=== PATIENT | female | born 1960 | race Caucasian/White ===

== ENCOUNTER 2025-07-28 13:31 | Inpatient (IN) | payer MEDICARE, SELFPAY ==
--- NOTE | ~2025-07-28 | CT_ITS ---
CLINICAL HISTORY: jaundice, epigastric abdominal pain CT abdomen and pelvis with contrast Comparison: CT - CT ABDOMEN PELVIS W IV CON - 07/28/2025 09:20 PM EDT Findings: Hiatal hernia. The gallbladder and solid organs are within normal limits. No renal stones. The gallbladder is contracted at time of imaging. No bowel obstruction, pneumoperitoneum, or pneumatosis. The appendix is within normal limits. The uterus demonstrates few subcentimeter dystrophic calcification; calcified leiomyomas. Left hemiabdomen peritoneal geographic area of inflammatory changes, 10 cm craniocaudal by 8 cm transverse by 5 cm AP, axial image number 43 of 98 series 3, coronal image 26 of 78 series 7. No acute fracture. IMPRESSION: 1. Left hemiabdominal mesenteric panniculitis, area measuring 10 x 8 x 5 cm. 2. Calcified uterine leiomyomas. 3. Hiatal hernia. This document has been electronically signed by: Mark Aguiar MD on 07/28/2025 23:25:34
--- NOTE | ~2025-07-28 | US_ITS ---
CLINICAL HISTORY: cholecystitis rule out US abdomen limited Comparison: None provided Findings: Normal gallbladder. No gallbladder wall thickening. No pericholecystic fluid. Normal caliber common duct. IMPRESSION: Normal gallbladder and bile ducts. This document has been electronically signed by: Miguel Ángel Avalos MD on 07/28/2025 20:36:11
--- NOTE | ~2025-07-28 | MR_ITS ---
EXAMINATION: MRCP HISTORY: abdo pain, raised LFT, r/o debris, stricture of CB COMPARISON: Correlation is made with abdominal CT and ultrasound examinations dated 07/28/2025. TECHNIQUE: Axial gradient echo in and out of phase T1, axial T2 and fat suppressed T2, and coronal haste T2 with fat saturation images were obtained through the abdomen. 3D MRCP Reconstructed images and thick slab imaging of the biliary tree were obtained. FINDINGS: There is no loss of signal intensity within the liver on opposed phase imaging to suggest steatosis. There is no intrahepatic biliary ductal dilatation. The gallbladder is contracted. There is a small amount of pericholecystic fluid. There may be a tiny gallstone. No intraluminal filling defects are identified within the common bile duct to suggest choledocholithiasis. The pancreatic duct is normal in caliber. There is trace free fluid surrounding the descending duodenum in the right anterior pararenal space. This could be secondary to ulcer disease or possibly groove pancreatitis. The spleen, adrenals, and kidneys are unremarkable. No retroperitoneal lymphadenopathy is identified in the upper abdomen. The visualized bones demonstrate normal marrow signal intensity. MR/MR MRCP IMPRESSION: 1. Possible cholelithiasis. 2. No evidence of choledocholithiasis. 3. Trace free fluid surrounding the descending duodenum in the right anterior pararenal space. This could be secondary to ulcer disease or possibly groove pancreatitis. Clinical correlation is recommended. Electronically signed by: Flavio Hernandez MD 07/29/2025 03:41 PM EDT
--- NOTE | 2025-07-28 13:59 | ED.GENADULT ---
[facility] - General Adult General Chief complaint: General Medical Stated complaint: no apetite, body aches Time Seen by Provider: 07/28/25 16:17 Source: patient Mode of arrival: ambulatory Limitations: no limitations History of Present Illness ED Provider: Dr. Blake [facility] narrative: 64-year-old female history of hypothyroidism presented hospital today for evaluation of poor p.o. intake, headache. She is also complaining of epigastric pain. Patient has stated that she was recently started on Macrobid for UTI this Tuesday. However on she began to have symptoms of increased fatigue. She has not been eating much due to this. She is also complaining of some epigastric pain. She has some epigastric discomfort when she eats. No abdominal surgeries in the past Related Data Allergies Allergy/AdvReac Type Severity Reaction Status Date / Time sulfamethoxazole (From Allergy Intermediate Rash Verified 07/28/25 14:03 Bactrim) trimethoprim (From Bactrim) Allergy Intermediate Rash Verified 07/28/25 14:00 Review of Systems Review of Systems: Pertinent review of systems as mentioned in HPI. All other system otherwise negative. [facility] Past Medical History [facility] Narrative: Medical history as mentioned in [facility] Social History Social History Alcohol intake: current Smoked in Last 30 Days: No Use of substances other than those prescribed or required for medical reasons: No Advance Directives: Yes Advance Directives Information Provided: No Advance Directives on File: No Do you have a plan to hurt others: No Plan Physical Exam ED Exam Exam: General: Pleasant, no distress, interacting appropriately Head: Normacephalic, atraumatic ENT: oral mucosa moist, neck supple, no tracheal deviation, scleral icterus appreciated on exam Cardiovascular: regular rate, regular rhythm, no murmurs, rubbing, gallops Respiratory: CTAB, no wheeze, rales, rhonchi Gastrointestinal: Soft, non distended, epigastric tenderness on palpation, no right upper quadrant tenderness Neurological: Awake and alert, no facial droop noted Skin: Warm and dry Psychiatric: Appropriate mood and thoughts Vital Signs: Vital Signs - 24 hr 07/28/25 14:00 07/28/25 16:19 07/28/25 17:34 Temperature 98.0 F 100.8 F H 98.5 F Pulse Rate 118 H 109 H 98 Respiratory Rate 18 20 18 Blood Pressure 129/82 119/71 129/73 Pulse Oximetry 97 99 94 Oxygen Delivery Method Room Air Room Air Room Air 07/28/25 19:36 07/29/25 00:29 Temperature 98.1 F Pulse Rate 81 85 Respiratory Rate 16 16 Blood Pressure 114/62 117/71 Pulse Oximetry 97 97 Oxygen Delivery Method Room Air Room Air BMI result Body Mass Index 27.5 Course Course Course Narrative: This is a rapid medical exam performed by Tessie Ovalle NP: Additional HPI, ROS, PE not included below will be deferred to primary provider. Patient is a 64y/o F presenting to the ED stating that Tue had UTI sxs, went to urgent care , started on Macrobid, by night has had body aches, headache, feeling worse. Epigastric pain after eating. Subjective fevers. UTI sxs have improved. Plan: labs, UA, viral swabs Medications Administered Discontinued Medications Generic Name Dose Route Start Last Admin Trade Name Freq PRN Reason Stop Dose Admin Acetaminophen 975 mg 07/28/25 18:12 07/28/25 18:24 Acetaminophen 325 Mg Tablet PO 07/28/25 18:13 975 mg ONCE ONE Administration Al Hydroxide/Mg Hydroxide 30 ml 07/28/25 21:25 07/28/25 21:47 Magnesium Hydrox/Alum Hydrox 30 Ml Oral.Susp PO 07/28/25 21:26 30 ml ONCE ONE Administration Cephalexin HCl 500 mg 07/29/25 00:04 07/29/25 00:24 Cephalexin 500 Mg Capsule PO 07/29/25 00:05 500 mg ONCE ONE Administration Famotidine 20 mg 07/29/25 00:04 07/29/25 00:24 Famotidine/Pf 20 Mg/2 Ml Vial IVPUSH 07/29/25 00:05 20 mg ONCE ONE Administration Piperacillin Sod/Tazobactam 100 mls @ 200 mls/hr 07/28/25 17:50 07/28/25 18:33 Sod 4.5 gm/ Sodium Chloride IV 07/28/25 18:19 Infused ONCE ONE Infusion Sodium Chloride 1,000 mls @ 999 mls/hr 07/28/25 18:15 07/28/25 19:32 Ns IV 07/28/25 19:15 Infused .Q1H1M YAAKOV Infusion Iohexol 85 ml 07/28/25 21:36 07/28/25 21:38 Iohexol 350 Mg/Ml 100 Ml Infus..Btl IV 07/28/25 21:37 85 ml ONCE ONE Administration Lidocaine HCl 15 ml 07/28/25 21:25 07/28/25 21:46 Lidocaine Hcl Viscous 2 % 15 Ml Solution MUCOUS MEM 07/28/25 21:26 15 ml ONCE ONE Administration Medical Decision Making Medical Decision Making [facility] Narrative: 64-year-old female presented hospital today for evaluation of fatigue, declined any p.o. intake and epigastric pain. I review patient's lab work. No sign of leukocytosis, patient does have elevated left shift and neutrophils 93.6%. Patient's have slight hyponatremia 133. Lactic acid is not elevated. Patient's bilirubin is elevated at 4.9. AST of 51 ALT of 122 alk-phos is elevated at 173. Patient's UA did show signs of pyuria. No bacteria. I suspect this is likely secondary to potential cholecystitis. Based on patient's lab presentation I suspect patient likely cholecystitis. A comprehensive ultrasound will be ordered. IV Zosyn initiated for the patient's bolus IV fluid be initiated for the patient as well. P.o. Tylenol will be given for headache. Comprehensive ultrasound did not show any signs of cholecystitis. I did obtain a CT imaging of her abdomen and pelvis. 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 Gives also calcified uterine fibroids and hiatal hernia. Patient is still complaining of some discomfort in the epigastric area. Did give patient some GI cocktail which did alleviate this pain. However her pain returned. IV Pepcid will be given the patient. Patient was able to p.o. challenge without any issues. However given the patient's elevated bilirubin level. I did consult the GI team. They recommend obtain a indirect and direct bilirubin levels. To further assess the cause of her elevated bilirubin. If the patient has elevated direct bilirubin they recommended an MRCP. If the indirect is elevated. They recommended LDH to assess for any signs of hemolysis. They recommend further trending of the patient's liver enzyme. The patient will be admitted to the hospital for further monitoring. Differential Diagnosis Differential Diagnoses: The differential diagnosis associated with the presentation includes Sepsis, cholecystitis, cholangitis, choledocholithiasis Consult Healthcare Provider Management of the patient was discussed with: Configuration Technician (Dr. Alba (GI)) Lab Data [facility] Lab Attestation statement: I reviewed the patient's lab results. 07/28/25 15:23 07/28/25 15:23 Labs: Lab Results 07/28/25 07/28/25 07/28/25 Range/Units 15:20 15:23 17:27 WBC 6.9 (4.8-10.8) X10*3/uL RBC 4.35 (4.20-5.50) X10*6/uL Hgb 13.2 (12.0-16.0) g/dl Hct 37.1 (37.0-47.0) % MCV 85.3 (80.0-98.0) fL MCH 30.3 (27.0-33.0) pg MCHC 35.6 H (31.0-35.0) g/dl RDW 12.0 (11.0-16.0) % Plt Count 213 (160-400) X10*3/uL MPV 8.8 L (9.4-12.3) fL Immature Gran % (Auto) 0.3 (0.0-0.4) % Neut % (Auto) 93.6 H (45-73) % Lymph % (Auto) 1.5 L (20-40) % [place] % (Auto) 3.5 (2-11) % Eos % (Auto) 1.0 (0-4) % Baso % (Auto) 0.1 (0-2) % Lymph # (Auto) 0.1 L (1.2-4.9) X10*3/uL [place] # (Auto) 0.2 (0.1-1.2) X10*3/uL Eos # (Auto) 0.1 (0.0-0.4) X10*3/uL Baso # (Auto) 0.0 (0.0-0.2) X10*3/uL Abs Immat Gran (auto) 0.02 (0.00-0.03) X10*3/uL Absolute Neuts (auto) 6.4 (2.0-8.3) x10*3/uL Absolute Nucleated RBC 0.000 (0.0-0.012) X10*3/uL Nucleated RBC % (auto) 0.0 (0.0-0.2) /100WBC Smear Tech's Comments VERIFIED Sodium 133 L (135-145) mmol/L Potassium 3.4 (3.3-5.1) mmol/L Chloride 102 (96-108) mmol/L Carbon Dioxide 22 (22-29) mmol/L Anion Gap 12 (12-20) BUN 10 (9-16) mg/dL Creatinine 0.65 (0.5-1.4) mg/dL Estim Creat Clear Calc 80.2 Estimated GFR > 60 Random Glucose 122 H (60-115) mg/dL Lactic Acid 1.2 (0.5-2.0) mmol/L Calcium 9.2 (8.4-10.2) mg/dL Total Bilirubin 4.9 H (0.0-1.0) mg/dL AST 51 H (5-31) U/L ALT 122 H (0-31) U/L Alkaline Phosphatase 173 H (39-117) U/L Total Protein 6.9 (6.5-8.0) g/dL Albumin 3.9 (3.5-5.0) g/dL Lipase 30 (8-78) U/L Urine Color Urine Appearance Urine pH (5.0-9.0) Ur Specific [place] (1.005-1.025) Urine Protein (Neg-Trace) mg/dL Urine Glucose (UA) (Negative) mg/dL Urine Ketones (Negative) mg/dL Urine Blood (Negative) Urine Nitrite (Negative) Ur Leukocyte Esterase (Negative) Urine RBC (0-2) /HPF Urine WBC (0-5) /HPF Ur Squamous Epith Cells (0-2) /HPF Urine Bacteria (None Seen) Hyaline Casts (0-2) /LPF COVID-19 (RIVAS) Negative (Negative) COVID-19 Clin Com See Note Influenza Type A (JP) Negative (Negative) Influenza Type B (JP) Negative (Negative) Influenza A & B Note See Note S. pyogenes GrpA JP Negative (Negative) 07/28/25 Range/Units 17:50 WBC (4.8-10.8) X10*3/uL RBC (4.20-5.50) X10*6/uL Hgb (12.0-16.0) g/dl Hct (37.0-47.0) % MCV (80.0-98.0) fL MCH (27.0-33.0) pg MCHC (31.0-35.0) g/dl RDW (11.0-16.0) % Plt Count (160-400) X10*3/uL MPV (9.4-12.3) fL Immature Gran % (Auto) (0.0-0.4) % Neut % (Auto) (45-73) % Lymph % (Auto) (20-40) % [place] % (Auto) (2-11) % Eos % (Auto) (0-4) % Baso % (Auto) (0-2) % Lymph # (Auto) (1.2-4.9) X10*3/uL [place] # (Auto) (0.1-1.2) X10*3/uL Eos # (Auto) (0.0-0.4) X10*3/uL Baso # (Auto) (0.0-0.2) X10*3/uL Abs Immat Gran (auto) (0.00-0.03) X10*3/uL Absolute Neuts (auto) (2.0-8.3) x10*3/uL Absolute Nucleated RBC (0.0-0.012) X10*3/uL Nucleated RBC % (auto) (0.0-0.2) /100WBC Smear Tech's Comments Sodium (135-145) mmol/L Potassium (3.3-5.1) mmol/L Chloride (96-108) mmol/L Carbon Dioxide (22-29) mmol/L Anion Gap (12-20) BUN (9-16) mg/dL Creatinine (0.5-1.4) mg/dL Estim Creat Clear Calc Estimated GFR Random Glucose (60-115) mg/dL Lactic Acid (0.5-2.0) mmol/L Calcium (8.4-10.2) mg/dL Total Bilirubin (0.0-1.0) mg/dL AST (5-31) U/L ALT (0-31) U/L Alkaline Phosphatase (39-117) U/L Total Protein (6.5-8.0) g/dL Albumin (3.5-5.0) g/dL Lipase (8-78) U/L Urine Color Dark Yellow Urine Appearance Clear Urine pH 6.0 (5.0-9.0) Ur Specific [place] 1.015 (1.005-1.025) Urine Protein 30 (1+) H (Neg-Trace) mg/dL Urine Glucose (UA) Negative (Negative) mg/dL Urine Ketones 80 (Negative) mg/dL Urine Blood Negative (Negative) Urine Nitrite Negative (Negative) Ur Leukocyte Esterase Moderate (2+) H (Negative) Urine RBC 3-5 H (0-2) /HPF Urine WBC 21-50 H (0-5) /HPF Ur Squamous Epith Cells 6-10 (0-2) /HPF Urine Bacteria None Seen (None Seen) Hyaline Casts 0-2 (0-2) /LPF COVID-19 (RIVAS) (Negative) COVID-19 Clin Com Influenza Type A (JP) (Negative) Influenza Type B (JP) (Negative) Influenza A & B Note S. pyogenes GrpA JP (Negative) Independent Interpretation I performed an independent interpretation of an: Ultrasound and CT Scan Radiology Impression Discussion of test interpretation with radiology: I have reviewed the radiologist's reading. Critical Care Time Critical Care Time Critical Care Time: Yes Total Critical Care Time: 38 Attestation: Time is exclusive of separately billable procedures. Time includes: direct patient care, patient reassessment, coordination of patient care, interpretation of data (laboratory data, pulse oximetry, arterial blood gases and chest xrays), review of patient's medical records, medical consultation and documentation of patient care. Procedures excluded from critical care time: central intravenous line placement and electrocardiography. Discharge Plan Discharge Clinical Impression: Elevated bilirubin, Acute epigastric pain, Mesenteric panniculitis Patient Disposition: Admitted As Inpatient
[2025-07-28 14:00] VITALS: BP 129/82; PULSE 118; RESP 18; TEMP 36.7; O2SAT 97; BMI 27.5
[2025-07-28 15:30] LABS: Hematocrit 37.1 % (37.0-47.0); Hemoglobin 13.2 g/dl (12.0-16.0); Imm Gran Abs Auto 0.02 X10*3/uL (0.00-0.03); Imm Gran Pct Auto 0.3 % (0.0-0.4); Lymphocytes Absolute Auto 0.1 X10*3/uL (1.2-4.9); MANUAL DIFF FLAG SCAN; Mean Corpuscular HGB Conc 35.6 g/dl (31.0-35.0); Mean Corpuscular Hemoglobin 30.3 pg (27.0-33.0); Mean Corpuscular Volume 85.3 fL (80.0-98.0); NRBC Abs Auto 0.000 X10*3/uL (0.0-0.012); NRBC Pct Auto 0.0 /100WBC (0.0-0.2); Platelet Count 213 X10*3/uL (160-400); Red Blood Count 4.35 X10*6/uL (4.20-5.50); SCAN SMEAR FLAG 1; White Blood Count 6.9 X10*3/uL (4.8-10.8)
--- OUTSIDE RECORDS SUMMARY | 2025-07-28 15:31 | XMS_ITS | Patient Health Record ---
[facility] Address [address] [place] [address] Care Team Providers Care Switchboard Operator Name Role Phone Lima Hernandez MD Primary Care Provider Unavailabl e Allergies Allergen (clinical drug ingredient) Drug/Non Drug Allergy documented on EMR Reaction Allergy Type Onset Date Status sulfamethoxazole / trimethoprim Bactrim Unknown Drug Allergy Active Reason For Referral No Information Medications Medication SIG (Take, Route, Frequency, Duration) Notes Start Date End Date Status ZyrTEC 10 MG PRN Active PROzac 20 MG Orally Active Vitamin B12 Active Social History Tobacco Use: Social History Observation Description Date Details (start date - stop date) Former Smoker NA - NA Tobacco Use/Smoking Question Answer Notes Are you a: former smoker Additional Findings: Tobacco Non-User Current no n-smoker Alcohol Screen Question Answer Notes Did you have a drink containing alcohol in the p ast year? Yes Points 0 Interpretation Negative Tobacco use other than smoking: Question Answer Notes Are you an other tobacco user? No Problems Problem Type SNOMED Code ICD Code Onset Dates Problem Status W/U Status Risk Notes Problem Acquired hallux valgus (52808205) Hallux valgus (acquired), left foot (M20.12) Active confirmed Plan Of Treatment No Information Insurance Providers Payer Name Payer Address Payer Phone Subscriber Number Group Number Insured Name Patient Relationship to Insured Coverage Start Date Coverage End Date [facility] [address] [facility] [address] [phone] [id number] Daylin Torres Self - patient is the insured Medical (General) History Medical History History ICD Code Arthritis asthma Measles Chicken pox Surgical History Surgery Date(Month/Year) Carpal tunnel Right left carple tunnel
[2025-07-28 15:58] LABS: COVID-19 Test Negative (Negative); IDNOW Serial# 08D9AD1C; IDNOW Serial# 58CA691E; Strep A Nucleic Acid Negative (Negative)
[2025-07-28 16:05] LABS: Alanine Aminotransferase 122 U/L (0-31); Albumin Level 3.9 g/dL (3.5-5.0); Anion Gap 12 (12-20); Aspartate Amino Transferase 51 U/L (5-31); Blood Urea Nitrogen 10 mg/dL (9-16); Calcium 9.2 mg/dL (8.4-10.2); Carbon Dioxide 22 mmol/L (22-29); Chloride 102 mmol/L (96-108); Creatinine Clr Calc Pharmacy 80.2; Estimated Glomerular Filt Rate > 60; Potassium 3.4 mmol/L (3.3-5.1); Sodium 133 mmol/L (135-145); Total Protein 6.9 g/dL (6.5-8.0)
[2025-07-28 16:09] LABS: IDNOW Serial# 55D5AD1C; Influenza B2 Negative (Negative)
[2025-07-28 16:19] VITALS: BP 119/71; PULSE 109; RESP 20; TEMP 38.2; O2SAT 99
[2025-07-28 16:35] LABS: Alkaline Phosphatase 173 U/L (39-117)
[2025-07-28 17:34] VITALS: BP 129/73; PULSE 98; RESP 18; TEMP 36.9; O2SAT 94
--- NOTE | 2025-07-28 18:02 | PC.NURSE ---
This RN was made aware of patient at 1705 of potential sepsis alert. Pt not febrile at initial triage, re-assessment reveled low grade temp, HR 109, no WBC, neg lactic. pt brought back shortly after, work-up started.
[2025-07-28 18:08] LABS: Appearance Urine Clear; Glucose Urine UA Negative (Negative); PH 6.0 (5.0-9.0); Specific Gravity - Urine 1.015 (1.005-1.025); UMIC TRIGGER UACC YES
[2025-07-28 18:20] LABS: UACC Culture Trigger YES
[2025-07-28 19:36] VITALS: BP 114/62; PULSE 81; RESP 16; TEMP 36.7; O2SAT 97
[2025-07-28] MEDS: iohexoL 350 MG/ML 100 ML INFUS..BTL 85 ML IV (21:38)
[2025-07-28] MEDS: Lidocaine HCl Viscous 2 % 15 ML SOLUTION MUCOUS MEM (21:46)
[2025-07-28] MEDS: Magnesium Hydrox/Alum Hydrox 30 ML ORAL.SUSP PO (21:47)
--- NOTE | 2025-07-28 21:52 | PC.NURSE ---
pt medicatedd per MAR with GI cocktail for c/o 02/[address] abdomen pelvis pending at this time- call worthy within reach
[2025-07-29] VITALS (7 sets, daily range): BP systolic 107–139; BP diastolic 63–71; PULSE 66–85; RESP 12–18; TEMP 36.2–36.7; O2SAT 95–97
--- NOTE | 2025-07-29 00:40 | PC.NURSE ---
Pt medicated as per DEC. PO challenge with sugar free mari doreen and saltines with good effect. Pt able to tolerate with no vomiting. made aware.
[2025-07-29 01:36] LABS: Lipase 30 U/L (8-78)
--- NOTE | 2025-07-29 01:44 | ECG_ITS ---
Test Reason : ABD PAIN Blood Pressure : */* mmHG Vent. Rate : 85 BPM Atrial Rate : 85 BPM P-R Int : 142 ms QRS Dur : 94 ms QT Int : 374 ms P-R-T Axes : 62 62 51 degrees QTcB Int : 445 ms Normal sinus rhythm Nonspecific ST abnormality Abnormal ECG No previous ECGs available Referred By: Mami Blake Electronically Signed By: ALISON PRASAD MD
--- NOTE | 2025-07-29 02:32 | P.HPHOSP_ITS ---
History of Present Illness Date of Service: 07/29/25 Attending physician on admission: Jason Jha Chief Complaint: Muscle aches, headache Daylin Torres is a very pleasant 64-year-old woman with past medical history significant for hypothyroidism presents to the emergency department complaining of multiple symptoms including, generalized body aches, back pain, joint pain and epigastric pain. She also has been experiencing headache and fever. On Tuesday she started to experienced UTI symptoms: Burning urination. Next day, she was seen at the urgent care and was prescribed with a course of Macrobid which she has been taking. Her appetite has been very poor. Yesterday she noted yellowing of her sclerae. She denied recent use of Tylenol. She has been taking Motrin for headache or body aches. Interestingly, last night she failed better but this morning symptoms started again. She had mild diarrhea but denied nausea or vomiting. She denied alcohol abuse, illicit drug use or tobacco smoking. Sometime ago she was evaluated by immunology and testing came back unremarkable. In the ED, she was found to have stable vital signs. Temperature max 100.8. There is mild hyponatremia 133 but no other electrolyte imbalances. Bilirubin is 4.9, direct bilirubin 3.5, AST 51, ALT 122 and alk-phos 133. Albumin, lipase and total proteins are normal. There is no lactic acidosis. Renal function is normal. UA is remarkable for protein 1+, leukocyte esterase 2+, RBC 2 through 5 I, WBC 21-50, bacteria none. Abdomen and pelvis CT scan with IV contrast showed left castillo abdominal mesenteric panniculitis, area measuring 10 x 8 x 5 cm, calcified uterine leiomyomas and hiatal hernia. ECG showed normal sinus rhythm with no acute ischemic changes. ED tx: Zosyn 4.5 g IV, NS 1 L bolus, Tylenol 975 mg p.o., Maalox 30 mL p.o., Pepcid 20 mg IV, Keflex 500 mg p.o. Review of Systems 2 Review of Systems: All 12 systems were reviewed and normal except as noted in HPI. [facility] Social History Alcohol intake: current Patient Tobacco Use Status: Never used Tobacco Meds Allergies Allergy/AdvReac Type Severity Reaction Status Date / Time sulfamethoxazole (From Allergy Intermediate Rash Verified 07/28/25 14:03 Bactrim) trimethoprim (From Bactrim) Allergy Intermediate Rash Verified 07/28/25 14:00 Active Medications: Current Medications Calcium Carbonate (Calcium Carbonate 750 Mg Tab.Chew) 750 mg PO Q4H PRN PRN Reason: Heartburn Enoxaparin Sodium (Enoxaparin Sodium 40 Mg/0.4 Ml Syringe) 40 mg SUBCUT Q24H [facility] Lactated Ringer's (Lr) 1,000 mls @ 125 mls/hr IVCONT .Q8H [facility] Piperacillin Sod/Tazobactam (Sod 3.375 gm/ Sodium Chloride) 50 mls @ 100 mls/hr IV Q6H [facility] Ibuprofen (Ibuprofen 600 Mg Tablet) 600 mg PO Q6H PRN PRN Reason: fever, body aches, headache Magnesium Hydroxide (Milk Of Magnesia 30 Ml Oral.Susp) 30 ml PO DAILY PRN PRN Reason: Constipation Melatonin (Melatonin 3 Mg Tablet) 6 mg PO BEDTIME PRN PRN Reason: Insomnia Sodium Chloride (0.9 % Sodium Chloride Flush 3 Ml Syringe) 3 ml IVFLUSH QSHIFT [facility] Physical Exam 2 Vital Signs and Narrative: Vital Signs: Last Vital Signs Temp 98.1 F 07/28/25 19:36 Pulse 85 07/29/25 00:29 Resp 16 07/29/25 00:29 BP 117/71 07/29/25 00:29 Pulse Ox 97 07/29/25 00:29 O2 Del Method Room Air 07/29/25 00:29 BMI result Body Mass Index 27.5 General: Alert, oriented, in no acute distress. Well nourished and cooperative. Pleasant. Febrile. HEENT: Head normocephalic, atraumatic. PER, EOMI. Icteric sclerae, conjunctiva clear. Oropharynx without erythema or exudate. Mucous membranes moist. Neck: Supple, no lymphadenopathy, or JVD. Heart: RRR. (+) murmur. Lungs: Clear to auscultation bilaterally. No wheezes, rales, or rhonchi. Normal respiratory effort. Abdomen: Soft, upper left periumbilical pain without rebound or guarding., nondistended, normoactive bowel sounds. No hepatosplenomegaly, masses or masses. Extremities: No calf tenderness bilaterally, no swelling Musculoskeletal: Full range of motion. No joint swelling, deformity, or tenderness. Normal muscle tone and strength. Skin: Warm/Dry. No pallor. Jaundice (+) Neurologic: Alert & oriented x4. Moving all extremities spontaneously. Normal speech. Psychological: Normal mood and affect. Thought process coherent. Results Labs 07/28/25 15:23 07/28/25 15:23 Labs: Laboratory Results - last 24 hr 07/28/25 07/28/25 07/28/25 15:20 15:23 17:27 MCV 85.3 MCH 30.3 MCHC 35.6 H RDW 12.0 Plt Count 213 MPV 8.8 L Immature Gran % (Auto) 0.3 Neut % (Auto) 93.6 H Lymph % (Auto) 1.5 L [place] % (Auto) 3.5 Eos % (Auto) 1.0 Baso % (Auto) 0.1 Lymph # (Auto) 0.1 L [place] # (Auto) 0.2 Eos # (Auto) 0.1 Baso # (Auto) 0.0 Abs Immat Gran (auto) 0.02 Absolute Neuts (auto) 6.4 Absolute Nucleated RBC 0.000 Nucleated RBC % (auto) 0.0 Smear Tech's Comments VERIFIED Anion Gap 12 Estim Creat Clear Calc 80.2 Estimated GFR > 60 Random Glucose 122 H Lactic Acid 1.2 Calcium 9.2 Total Bilirubin 4.9 H Direct Bilirubin 3.5 H AST 51 H ALT 122 H Alkaline Phosphatase 173 H Total Protein 6.9 Albumin 3.9 Lipase 30 Urine Color Urine Appearance Urine pH Ur Specific [place] Urine Protein Urine Glucose (UA) Urine Ketones Urine Blood Urine Nitrite Ur Leukocyte Esterase Urine RBC Urine WBC Ur Squamous Epith Cells Urine Bacteria Hyaline Casts COVID-19 ([facility]) Negative COVID-19 Clin Com See Note Influenza Type A (JP) Negative Influenza Type B (JP) Negative Influenza A & B Note See Note S. pyogenes GrpA JP Negative 07/28/25 17:50 MCV MCH MCHC RDW Plt Count MPV Immature Gran % (Auto) Neut % (Auto) Lymph % (Auto) [place] % (Auto) Eos % (Auto) Baso % (Auto) Lymph # (Auto) [place] # (Auto) Eos # (Auto) Baso # (Auto) Abs Immat Gran (auto) Absolute Neuts (auto) Absolute Nucleated RBC Nucleated RBC % (auto) Smear Tech's Comments Anion Gap Estim Creat Clear Calc Estimated GFR Random Glucose Lactic Acid Calcium Total Bilirubin Direct Bilirubin AST ALT Alkaline Phosphatase Total Protein Albumin Lipase Urine Color Dark Yellow Urine Appearance Clear Urine pH 6.0 Ur Specific [place] 1.015 Urine Protein 30 (1+) H Urine Glucose (UA) Negative Urine Ketones 80 Urine Blood Negative Urine Nitrite Negative Ur Leukocyte Esterase Moderate (2+) H Urine RBC 3-5 H Urine WBC 21-50 H Ur Squamous Epith Cells 6-10 Urine Bacteria None Seen Hyaline Casts 0-2 COVID-19 ([facility]) COVID-19 Clin Com Influenza Type A (JP) Influenza Type B (JP) Influenza A & B Note S. pyogenes GrpA JP Assessment and Plan (1) Elevated LFTs: Status: Acute (2) Mesenteric panniculitis: Status: Acute Plan Daylin Torres is a 64-year-old woman who presents with: Elevated LFTs, cause unclear ?secondary to recent use of Macrobid causing cholestasis. Hold Macrobid. Abd US (-) for gallstones. Avoid hepatotoxic agents such as Tylenol. Continue to monitor LFTs. Check CRP, JOSE, anti DNA ds, and hepatitis panel. GI consult. Mesenteric panniculitis. No hx of abdominal surgery. Check CRP, ANCA, IgG4, uric acid, LDH, A1 antitrypsin and JOSE. Continue antibiotic therapy with Zosyn. Sterile pyuria, possible secondary to recent use of antibiotic/Macrobid. Check urine eosinophils. Urine and blood culture obtained we will follow results. Hypothyroidism. Continue levothyroxine. Depression. Hold Prozac due to elevated LFTs. Code status: Full DVT prophylaxis: Lovenox Patient will need hospitalization for at least 2 midnights for elevated LFTs and panic colitis management and treatment with IV antibiotics, IV antibiotics and further investigation and evaluation by subspecialty. Quality Stroke Does the patient have a stroke diagnosis?: No VTE Prior VTE?: No VTE Risk Level:: Medical - moderate - high VTE Device Contraindication: N/A - Device Ordered VTE Drug Contraindication: N/A - Med Ordered
[2025-07-29] MEDS: Lactated Ringers 1,000 ML 125 ML IVCONT ×3 (02:59→23:30)
[2025-07-29 04:23] LABS: MANUAL DIFF FLAG NO
[2025-07-29 04:24] LABS: Hematocrit 31.8 % (37.0-47.0); Hemoglobin 11.5 g/dl (12.0-16.0); Imm Gran Abs Auto 0.02 X10*3/uL (0.00-0.03); Imm Gran Pct Auto 0.4 % (0.0-0.4); Lymphocytes Absolute Auto 0.2 X10*3/uL (1.2-4.9); Mean Corpuscular HGB Conc 36.2 g/dl (31.0-35.0); Mean Corpuscular Hemoglobin 30.8 pg (27.0-33.0); Mean Corpuscular Volume 85.3 fL (80.0-98.0); NRBC Abs Auto 0.000 X10*3/uL (0.0-0.012); NRBC Pct Auto 0.0 /100WBC (0.0-0.2); Platelet Count 193 X10*3/uL (160-400); Red Blood Count 3.73 X10*6/uL (4.20-5.50); White Blood Count 5.0 X10*3/uL (4.8-10.8)
[2025-07-29 04:45] LABS: Uric Acid 1.8 mg/dL (2.4-5.7)
[2025-07-29 05:03] LABS: Alanine Aminotransferase 89 U/L (0-31); Albumin Level 3.3 g/dL (3.5-5.0); Alkaline Phosphatase 148 U/L (39-117); Anion Gap 14 (12-20); Aspartate Amino Transferase 36 U/L (5-31); Blood Urea Nitrogen 8 mg/dL (9-16); Calcium 8.3 mg/dL (8.4-10.2); Carbon Dioxide 20 mmol/L (22-29); Chloride 104 mmol/L (96-108); Creatinine Clr Calc Pharmacy 94.7; Estimated Glomerular Filt Rate > 60; Potassium 2.8 mmol/L (3.3-5.1); Sodium 135 mmol/L (135-145); Total Protein 5.8 g/dL (6.5-8.0)
[2025-07-29] MEDS: Potassium Chloride Packet 20 MEQ PACKET 40 MEQ PO (06:21)
--- NOTE | 2025-07-29 06:46 | HO.NURTONUR ---
64 Y F aox4 presents with headache and abd discomfort s/o antibiotics for UTI. NSR on monitor with HR 80's. Breaths even and unlabored. VSS. Being admitted for elevated LFT's and mesenteric panniculitis. Pending GI evaluation. #22 L hand with LR running at 125 mls/hr. Independent and ambulatory. Hypokalemic. Potassium replenished PO.
[2025-07-29 08:06] LABS: HBS Num1 72.95 mIU/mL (0-7.99); HBc Num1 0.10 S/CO (0.00-0.79); HBsAGNum1 0.27 S/CO (0.00-0.99); Hepatitis A Antibody IgM 0.16 Index (0-0.79); Hepatitis B Surface Antigen Negative (Negative); ~HepC Num1 0.12 S/CO (0.00-0.79); ~Hepatitis A Antibody IgM Nonreactive (Nonreactive); ~Hepatitis B Surface Antibody REACTIVE (Nonreactive); ~Hepatitis C Antibody Nonreactive (Nonreactive)
--- NOTE | 2025-07-29 08:18 | PHA.MEDREC ---
Pharmacy Consult ? Medication Reconciliation Pharmacy has completed the medication reconciliation. Spoke with pt to confirm meds.
[2025-07-29] MEDS: 0.9 % Sodium Chloride Flush 3 ML SYRINGE IVFLUSH ×2 (08:28→19:35)
[2025-07-29 09:14] LABS: EOS Counted 0 CELLS; EOS QC POS YES; EOS Stain Quality OK YES; WBC, Counted 30 CELLS
--- NOTE | 2025-07-29 09:19 | PM.GICN ---
History of Present Illness Data of Consult Service Date: 07/29/25 Primary Care Provider: Lima Hernandez MD HPI Reason for consult: abn LFT 64-year-old woman with hx of hypothyroidism who I am seeing for assessment of abn LFT. She initially presented with flu like symptoms, including malaise, generalized body aches, back pain, joint pains and epigastric discomfort without any exacerbating/relieving factors along with headache and fever. she also noted jaundice. Of note she had been dx with UTI last week and was given macrobid which she has had before. The sx seemed to come on within 24 hrs of the first dose. Her urine sx have improved as she finsihed the 5 d course. She denied alcohol abuse, illicit drug use or tobacco smoking.She denied recent use of Tylenol. She had mild diarrhea but denied nausea or vomiting. Ct imaging: left castillo abdominal mesenteric panniculitis, area measuring 10 x 8 x 5 cm, calcified uterine leiomyomas and hiatal hernia LAB: Bilirubin is 4.9, direct bilirubin 3.5, AST 51, ALT 122 and alk-phos 133. Albumin, lipase and total proteins are normal. There is no lactic acidosis. Renal function is normal. UA is remarkable for protein 1+, leukocyte esterase 2+, RBC 2 through 5 I, WBC 21-50, bacteria none Hep c is negative =- Hep A IgM is neg She has been treatment with Zosyn 4.5 g IV, NS 1 L bolus, Tylenol 975 mg p.o., Maalox 30 mL p.o., Pepcid 20 mg IV, Keflex 500 mg p.o. Review of Systems Review of Systems: Constitutional : No Weight loss, + Fever, No Chills ENT/Mouth : No sore throat, No Rhinorrhea Eyes: No Swelling, No Redness Cardiovascular : No Chest Pain, No SOB, No Edema Respiratory : No Cough, No Sputum, No Wheezing Gastrointestinal : see HPI Genitourinary : NO Dysuria, No Urinary Frequency, No Hematuria, No Urgency Musculoskeletal : + joint pain, + Myalgias, No Joint Swelling Skin : No Skin Lesions, No rash Neuro : No Weakness, No Numbness, No Dizziness, No Headache Psych : No Anxiety/Panic, No Depression Heme/Lymph: No Bruising, No Lymphadenopathy Endocrine : No Polyuria, No Polydipsia All other systems reviewed and are negative. [facility] Family History Pertinent family history: no Fh of liver disease Social History Social History Alcohol intake: current Patient Tobacco Use Status: Never used Tobacco Smoked in Last 30 Days: No Use of substances other than those prescribed or required for medical reasons: No Advance Directives: Yes Advance Directives Information Provided: No Advance Directives on File: No Do you have a plan to hurt others: No Plan Nutrition Risks: No Nutritional Risk Meds Allergies Allergy/AdvReac Type Severity Reaction Status Date / Time sulfamethoxazole (From Allergy Intermediate Rash Verified 07/28/25 14:03 Bactrim) trimethoprim (From Bactrim) Allergy Intermediate Rash Verified 07/28/25 14:00 Active Medications: Current Medications Calcium Carbonate (Calcium Carbonate 750 Mg Tab.Chew) 750 mg PO Q4H PRN PRN Reason: Heartburn Enoxaparin Sodium (Enoxaparin Sodium 40 Mg/0.4 Ml Syringe) 40 mg SUBCUT Q24H [facility] Last Admin: 07/29/25 08:29 Dose: 40 mg Lactated Ringer's (Lr) 1,000 mls @ 125 mls/hr IVCONT .Q8H [facility] Last Admin: 07/29/25 02:59 Dose: 125 mls/hr Piperacillin Sod/Tazobactam (Sod 3.375 gm/ Sodium Chloride) 50 mls @ 100 mls/hr IV Q6H [facility] Last Admin: 07/29/25 08:27 Dose: 100 mls/hr Ibuprofen (Ibuprofen 600 Mg Tablet) 600 mg PO Q6H PRN PRN Reason: fever, body aches, headache Last Admin: 07/29/25 06:22 Dose: 600 mg Magnesium Hydroxide (Milk Of Magnesia 30 Ml Oral.Susp) 30 ml PO DAILY PRN PRN Reason: Constipation Melatonin (Melatonin 3 Mg Tablet) 6 mg PO BEDTIME PRN PRN Reason: Insomnia Sodium Chloride (0.9 % Sodium Chloride Flush 3 Ml Syringe) 3 ml IVFLUSH QSHIFT [facility] Last Admin: 07/29/25 08:28 Dose: 3 ml Home Medications ?Medication ?Instructions ?Recorded ?Confirmed ?Last Taken ?Type cetirizine 10 mg tablet (Zyrtec) 10 mg PO BEDTIME 07/29/25 07/29/25 Unknown History cyanocobalamin (vitamin B-12) 500 500 mcg PO DAILY 07/29/25 07/29/25 Unknown History mcg tablet (Vitamin B-12) fluoxetine 20 mg capsule 20 mg PO DAILY 07/29/25 07/29/25 07/27/25 History ibuprofen 200 mg tablet 600 mg PO Q8H PRN Pain 07/29/25 07/29/25 Unknown History levothyroxine 25 mcg tablet 25 mcg PO DAILY@0600 07/29/25 07/29/25 07/27/25 History Physical Exam Exam: Exam: EXAM: GENERAL: The patient is well developed and nontoxic. VITAL SIGNS:see workflow HEENT: icteric sclerae, PERRLA, EOMI. Oropharynx clear. Moist mucous membranes. Conjunctivae appear well perfused. No thyroid mass. CHEST: Chest wall is nontender. HEART: Regular rate and rhythm without murmurs. LUNGS: Clear to auscultation bilaterally. ABDOMEN: Soft, positive bowel sounds, nontender, no organomegaly.no flank tenderness SKIN: No rash, no excessive bruising, petechiae, or purpura. jaundice noted NEUROLOGIC: Cranial nerves II-XII intact without motor/sensory deficit. Psych: normal affect Vital Signs: Vital Signs: Last Vital Signs Temp 98.1 F 07/29/25 08:00 Pulse 82 07/29/25 08:00 Resp 12 07/29/25 08:00 BP 107/66 07/29/25 08:00 Pulse Ox 96 07/29/25 08:00 O2 Del Method Room Air 07/29/25 08:00 BMI result Body Mass Index 27.5 Results Labs 07/29/25 03:36 07/29/25 03:36 Labs: Short CBC 07/28/25 07/29/25 Range/Units 15:23 03:36 WBC 6.9 5.0 (4.8-10.8) X10*3/uL Hgb 13.2 11.5 L (12.0-16.0) g/dl Hct 37.1 31.8 L (37.0-47.0) % Plt Count 213 193 (160-400) X10*3/uL BMP 07/28/25 07/29/25 15:23 03:36 Sodium 133 L 135 Potassium 3.4 2.8 L* Chloride 102 104 Carbon Dioxide 22 20 L BUN 10 8 L Creatinine 0.65 0.55 Calcium 9.2 8.3 L D Liver Function 07/28/25 07/29/25 Range/Units 15:23 03:36 Total Bilirubin 4.9 H 5.1 H (0.0-1.0) mg/dL Direct Bilirubin 3.5 H (0.0-0.5) mg/dL AST 51 H 36 H (5-31) U/L ALT 122 H 89 H (0-31) U/L Alkaline Phosphatase 173 H 148 H (39-117) U/L Albumin 3.9 3.3 L (3.5-5.0) g/dL Urine 07/28/25 Range/Units 17:50 Urine Color Dark Yellow Urine Appearance Clear Urine pH 6.0 (5.0-9.0) Ur Specific [place] 1.015 (1.005-1.025) Urine Protein 30 (1+) H (Neg-Trace) mg/dL Urine Glucose (UA) Negative (Negative) mg/dL Imaging CT scan - abdomen: Attestation: I personally reviewed and interpreted this imaging study as follows: (mesenteric stranding and fibroids noted) Assessment and Plan (1) Mesenteric panniculitis: Status: Acute (2) Elevated bilirubin: Status: Acute Plan 1/ abn LFT with mesenteric stranding, uncertain if these are associated or not, or whether the stranding is 2/2 recent UTI. no evidence on imaging of stones or debris, obstructive pathology. Most likely explanation seems to be drug induced liver injury, macrobid can be associated with an autoimmune hepatitis like picture PLAN: /1 MRCP 2/ check JOSE and antibodies as ordered 3/ will consider liver bx and steroid trial if numbers cont to increase and MRI is negative Procedures Date of Service Date of Service: 07/29/25
--- NOTE | 2025-07-29 09:47 | PC.NURSE ---
Report was taken from previous rn at 0700, pt was resting comfortably and was in no distress, her admission is pending and she was awaiting eval by gi. She has remained comfortable to this time, she has had 1 episode of loose stool, she ambulated well to restroom and has no complaint
[2025-07-29 10:00] LABS: INTERNATIONAL NORM RATIO 1.2 (0.9-1.1); Prothrombin Time 13.2 SEC (10.9-12.4)
[2025-07-29 10:09] LABS: Potassium 3.5 mmol/L (3.3-5.1)
--- NOTE | 2025-07-29 14:00 | PC.NURSE ---
report faxed to S3 by US-attempted to call unit with Austyn WHITNEY to give verba report however we were unable to reach floor, pt transported to med surg via wc by ED transport
--- NOTE | 2025-07-29 16:17 | PM.EVENT ---
Event Note Date of Service: 07/29/25 Event Note: Admitted this morning with elevated LFTs, boady and joint pain. Hep A, B, C neegativ. MRCP no choledocholithiasis, possible drug related but mor likely a viral porcess. See GI note for further plan. Repeat labs tomorrow Time Spent With Patient Time: Total time managing care of this patient today ____ minutes.
[2025-07-30 03:29] VITALS: BP 119/66; PULSE 62; RESP 18; TEMP 36.7; O2SAT 96
[2025-07-30 07:27] VITALS: BP 127/72; PULSE 62; RESP 12; TEMP 36.8; O2SAT 95
[2025-07-30 08:16] LABS: INTERNATIONAL NORM RATIO 1.1 (0.9-1.1); Prothrombin Time 12.3 SEC (10.9-12.4)
[2025-07-30] MEDS: Lactated Ringers 1,000 ML 125 ML IVCONT (08:21)
[2025-07-30 08:38] LABS: Albumin Level 3.0 g/dL (3.5-5.0); Alkaline Phosphatase 131 U/L (39-117); Anion Gap 9 (12-20); Aspartate Amino Transferase 37 U/L (5-31); Blood Urea Nitrogen 7 mg/dL (9-16); Calcium 8.7 mg/dL (8.4-10.2); Carbon Dioxide 24 mmol/L (22-29); Chloride 109 mmol/L (96-108); Creatinine Clr Calc Pharmacy 93.0; Estimated Glomerular Filt Rate > 60; Potassium 3.4 mmol/L (3.3-5.1); Sodium 139 mmol/L (135-145); Total Protein 5.6 g/dL (6.5-8.0)
[2025-07-30 08:50] LABS: Alanine Aminotransferase 67 U/L (0-31)
--- NOTE | 2025-07-30 09:58 | MHC.CM.PN ---
IMM delivered. Patient lives in a home alone. Functionally independent. Denies use of DME or services. PCP Lima Hernandez MD HCP is daughter, Philippe. Copy requested. DP: Home self care private transport. CM will continue to follow.
--- NOTE | 2025-07-30 12:34 | P.DS_ITS ---
DS: Providers Provider Date of Service: 07/31/25 Date of admission: 07/29/25 01:59 Date of discharge: 07/31/25 Primary care physician: Lima Hernandez MD Consults: 07/29/25 02:31 Consult to Gastroenterology Routine Consulting Provider: Roland Alba Reason for consultation: Elevated LFTs, fever Has provider been notified: Yes DS: Diagnosis Discharge Diagnosis (1) Mesenteric panniculitis: Status: Acute (2) Elevated bilirubin: Status: Acute DS: Summary Hospital Course Hospital Course: admission hpi Chief Complaint: Muscle aches, headache Daylin Torres is a very pleasant 64-year-old woman with past medical history significant for hypothyroidism presents to the emergency department complaining of multiple symptoms including, generalized body aches, back pain, joint pain and epigastric pain. She also has been experiencing headache and fever. On Tuesday she started to experienced UTI symptoms: Burning urination. Next day, she was seen at the urgent care and was prescribed with a course of Macrobid which she has been taking. Her appetite has been very poor. Yesterday she noted yellowing of her sclerae. She denied recent use of Tylenol. She has been taking Motrin for headache or body aches. Interestingly, last night she failed better but this morning symptoms started again. She had mild diarrhea but denied nausea or vomiting. She denied alcohol abuse, illicit drug use or tobacco smoking. Sometime ago she was evaluated by immunology and testing came back unremarkable. In the ED, she was found to have stable vital signs. Temperature max 100.8. There is mild hyponatremia 133 but no other electrolyte imbalances. Bilirubin is 4.9, direct bilirubin 3.5, AST 51, ALT 122 and alk-phos 133. Albumin, lipase and total proteins are normal. There is no lactic acidosis. Renal function is normal. UA is remarkable for protein 1+, leukocyte esterase 2+, RBC 2 through 5 I, WBC 21-50, bacteria none. Abdomen and pelvis CT scan with IV contrast showed left castillo abdominal mesenteric panniculitis, area measuring 10 x 8 x 5 cm, calcified uterine leiomyomas and hiatal hernia. ECG showed normal sinus rhythm with no acute ischemic changes. ED tx: Zosyn 4.5 g IV, NS 1 L bolus, Tylenol 975 mg p.o., Maalox 30 mL p.o., Pepcid 20 mg IV, Keflex 500 mg p.o. hospital course: The patient presented with muscle aches, joint pain and headache. She had been prescribed Macrobid for UTI days earlier. Lab work revealed elvated LFTS, total Bili of 5.1 now 3.9, she has also noted to have paniculitis and was initiated on Zosyn. Hepatitis A, B and C are negative, although the possibility of other viral causes cannot be excluded at this time. She has seen GI and is being managed conservatively, further testing in progresss including autoimmune work up. Fortunately her LFTs are now trending down, also bilirubin trending down. Additional testing including JOSE, anti DNA. Today Tbili is 3.5, AST 49, ALT 72, AKP 139. Elevated LFTs, cause unclear ?secondary to recent use of Macrobid causing cholestasis. Hold Macrobid. Abd US (-) for gallstones. Avoid hepatotoxic agents such as Tylenol. Continue to monitor LFTs. Check CRP, s, and hepatitis panel. GI consult. Mesenteric panniculitis. No hx of abdominal surgery. Check CRP, ANCA, IgG4, uric acid, LDH, A1 antitrypsin and JOSE. Continue antibiotic therapy with Zosyn. Sterile pyuria, possible secondary to recent use of antibiotic/Macrobid. Check urine eosinophils. Urine and blood culture obtained we will follow results. Hypothyroidism. Continue levothyroxine. Depression. Hold Prozac due to elevated LFTs. Time Attestation Discharge Coordination Time (in mins): 40 Quality: Safe Use of Opioids Does Pt have an Active Cancer Diagnosis on the Problem List?: No Quality: Stroke Does the patient have a stroke diagnosis?: No Physical Exam Vital Signs: Vital Signs: Selected Entries 07/31/25 07:21 Temperature 98.2 F Pulse Rate 55 Respiratory Rate 16 Blood Pressure 130/66 Pulse Oximetry 94 Oxygen Delivery Me thod Room Air DS: Data Data Completed and Pending Labs on day of discharge: Laboratory Results - last 24 hr 07/29/25 07/30/25 03:36 07:49 PT 12.3 INR 1.1 Sodium 139 Potassium 3.4 Chloride 109 H Carbon Dioxide 24 Anion Gap 9 L BUN 7 L Creatinine 0.56 Estim Creat Clear Calc 93.0 Estimated GFR > 60 Random Glucose 90 Calcium 8.7 Total Bilirubin 3.9 H Direct Bilirubin 3.1 H AST 37 H ALT 67 H Alkaline Phosphatase 131 H C-Reactive Protein 8.70 H Total Protein 5.6 L Albumin 3.0 L [id number] 201 H Preliminary micro results at discharge 07/28/25 17:27 Blood Culture - Preliminary Blood - Venous No growth after 24 hours. 07/28/25 17:26 Blood Culture - Preliminary Blood - Venous No growth after 24 hours. Discharge Plan Discharge Anticipated Discharge Date/Time: 07/31/25 11:12 Patient Disposition: Home, Self-Care Discharge Diagnosis: Elevated LFTs, paniculitis Referrals: Lima Hernandez MD [Primary Care Provider, Medical] - 1 Week Discharge Medications: New doxycycline monohydrate 100 mg Capsule 100 mg PO Q12H Qty: 12 0RF amoxicillin-pot clavulanate 875-125 mg tablet 1 tab PO BID Qty: 10 0RF Continued cetirizine [Zyrtec] 10 mg Tablet 10 mg PO BEDTIME levothyroxine 25 mcg tablet 25 mcg PO DAILY@0600 cyanocobalamin (vitamin B-12) [Vitamin B-12] 500 mcg Tablet 500 mcg PO DAILY ibuprofen 200 mg Tablet 600 mg PO Q8H PRN (Reason: Pain) fluoxetine 20 mg capsule 20 mg PO DAILY Discharge Orders: Discharge Order (Routine); Ordered 07/31/25 Ordered By: Reece Avilez Diet: Advance to usual diet Activity on Discharge: As tolerated Stand Alone Forms: Patient Portal Discharge page Print Language: Indonesian Care Plan Goals: recovery from elevated LFTs Health Concerns: Elevated LFTs paniculitis Plan of Treatment: take doxycyline for paniculitis follow up with your pcpc within a week, call for appointment Assessment: see above
--- NOTE | 2025-07-30 12:59 | HO.PM.IMPN ---
Subjective Subjective Date of Service: 07/30/25 Interval History: f/u on elevated LFTs, paniculitis, still have body aches, joint ache but improving, LFTs are heading down slightly Physical Exam Vital Signs: Vital Signs: Last Vital Signs Temp 98.2 F 07/30/25 07:27 Pulse 62 07/30/25 07:27 Resp 12 07/30/25 07:27 BP 127/72 07/30/25 07:27 Pulse Ox 95 07/30/25 07:27 O2 Del Method Room Air 07/30/25 07:27 BMI result Body Mass Index 27.5 Const: Other: General: AO X 3, no acute distress milc sclera ict, Resp: CTA bilateral CVS: S1,S2,RRR GI: +BS, NT, no distention Skin: No rash, joint aches Neuro: motor grossly intact Psych: appropriate affect Objective Data Active Medications Calcium Carbonate (Calcium Carbonate 750 Mg Tab.Chew) 750 mg PO Q4H PRN PRN Reason: Heartburn Cyanocobalamin (Cyanocobalamin (Vitamin B-12) 500 Mcg Tablet) 500 mcg PO DAILY [facility] Last Admin: 07/30/25 08:15 Dose: 500 mcg Documented By: JOHN Enoxaparin Sodium (Enoxaparin Sodium 40 Mg/0.4 Ml Syringe) 40 mg SUBCUT Q24H [facility] Last Admin: 07/30/25 08:15 Dose: 40 mg Documented By: JOHN Fluoxetine HCl (Fluoxetine Hcl 20 Mg Capsule) 20 mg PO DAILY [facility] Last Admin: 07/30/25 08:15 Dose: 20 mg Documented By: JOHN Lactated Ringer's (Lr) 1,000 mls @ 125 mls/hr IVCONT .Q8H [facility] Last Admin: 07/30/25 08:21 Dose: 125 mls/hr Documented By: JOHN Piperacillin Sod/Tazobactam (Sod 3.375 gm/ Sodium Chloride) 50 mls @ 100 mls/hr IV Q6H [facility] Last Infusion: 07/30/25 08:49 Dose: Infused Documented By: JOHN Ibuprofen (Ibuprofen 600 Mg Tablet) 600 mg PO Q6H PRN PRN Reason: fever, body aches, headache Last Admin: 07/30/25 11:55 Dose: 600 mg Documented By: HO.DABA Levothyroxine Sodium (Levothyroxine Sodium 25 Mcg Tablet) 25 mcg PO DAILY@0600 [facility] Last Admin: 07/30/25 06:09 Dose: 25 mcg Documented By: AVNI Loratadine (Loratadine 10 Mg Tablet) 10 mg PO BEDTIME [facility] Last Admin: 07/29/25 19:35 Dose: 10 mg Documented By: AVNI Magnesium Hydroxide (Milk Of Magnesia 30 Ml Oral.Susp) 30 ml PO DAILY PRN PRN Reason: Constipation Melatonin (Melatonin 3 Mg Tablet) 6 mg PO BEDTIME PRN PRN Reason: Insomnia Sodium Chloride (0.9 % Sodium Chloride Flush 3 Ml Syringe) 3 ml IVFLUSH QSHIFT [facility] Last Admin: 07/30/25 06:57 Dose: Not Given Documented By: JOHN Non-Admin Reason: IV Running Labs 07/29/25 03:36 07/30/25 07:49 Labs: Laboratory Results - last 24 hr 07/29/25 07/30/25 03:36 07:49 PT 12.3 INR 1.1 Anion Gap 9 L Estim Creat Clear Calc 93.0 Estimated GFR > 60 Random Glucose 90 Calcium 8.7 Total Bilirubin 3.9 H Direct Bilirubin 3.1 H AST 37 H ALT 67 H Alkaline Phosphatase 131 H C-Reactive Protein 8.70 H Total Protein 5.6 L Albumin 3.0 L Qoftw-9-Xpiouckafri 201 H Microbiology Microbiology Results: Microbiology 07/28/25 17:50 Urine Culture - Final Urine clean catch - Clean Catch Midstream 07/28/25 17:27 Blood Culture - Preliminary Blood - Venous No growth after 24 hours. 07/28/25 17:26 Blood Culture - Preliminary Blood - Venous No growth after 24 hours. Assessment and Plan (1) Elevated LFTs: Status: Acute (2) Mesenteric panniculitis: Status: Acute Plan The patient presented with muscle aches, joint pain and headache. She had been prescribed Macrobid for UTI days earlier. Lab work revealed elvated LFTS, total Bili of 5.1 now 3.9, she has also noted to have paniculitis and was initiated on Zosyn. Hepatitis A, B and C are negative, although the possibility of other viral causes cannot be excluded at this time. She has seen GI and is being managed conservatively, further testing in progresss including autoimmune work up. Fortunately her LFTs are now trending down, also bilirubin trending down. Additional testing including JOSE, anti DNA. Elevated LFTs, cause unclear ?secondary to recent use of Macrobid causing cholestasis. Hold Macrobid. Abd US (-) for gallstones. Avoid hepatotoxic agents such as Tylenol. Continue to monitor LFTs. Check CR today, s, and hepatitis panel. GI following, C Mesenteric panniculitis. No hx of abdominal surgery. Check CRP, ANCA, IgG4, uric acid, LDH, A1 antitrypsin and JOSE. Continue antibiotic therapy with Zosyn and add PO doxy Sterile pyuria, possible secondary to recent use of antibiotic/Macrobid, now stopped. . Hypothyroidism. Continue levothyroxine. Depression. Hold Prozac due to elevated LFTs. dvt prophylaxisL:lovneox Quality Stroke Does the patient have a stroke diagnosis?: No VTE Prior VTE?: No VTE Risk Level:: Medical - moderate - high VTE Device Contraindication: N/A - Device Ordered VTE Drug Contraindication: N/A - Med Ordered
[2025-07-30 15:13] VITALS: BP 138/79; PULSE 55; RESP 18; TEMP 36.5; O2SAT 98
[2025-07-30 19:22] VITALS: BP 149/70; PULSE 59; RESP 19; TEMP 36.8; O2SAT 96
--- NOTE | 2025-07-30 21:04 | P.PNGI_ITS ---
Subjective Subjective Date of Service: 07/30/25 Interval History: some improvement in pain LFT and CRP coming down managing PO diet no fever Critical Care Time (minutes): 0 Physical Exam 2 Exam: Exam: EXAM: GENERAL: The patient is well developed and nontoxic. VITAL SIGNS:see workflow HEENT: mildly icteric sclerae, PERRLA, EOMI. Oropharynx clear. Moist mucous membranes. Conjunctivae appear well perfused. No thyroid mass. CHEST: Chest wall is nontender. HEART: Regular rate and rhythm without murmurs. LUNGS: Clear to auscultation bilaterally. ABDOMEN: Soft, positive bowel sounds, nontender, no organomegaly.no flank tenderness SKIN: No rash, no excessive bruising, petechiae, or purpura. NEUROLOGIC: Cranial nerves II-XII intact without motor/sensory deficit. Psych: normal affect Vital Signs: Vital Signs: Last Vital Signs Temp 98.2 F 07/30/25 19:22 Pulse 59 07/30/25 19:22 Resp 19 07/30/25 19:22 BP 149/70 H 07/30/25 19:22 Pulse Ox 96 07/30/25 19:22 O2 Del Method Room Air 07/30/25 19:22 BMI result Body Mass Index 27.5 Objective Data Labs 07/29/25 03:36 07/30/25 07:49 Labs: Laboratory Results - last 24 hr 07/29/25 07/30/25 03:36 07:49 PT 12.3 INR 1.1 Sodium 139 Potassium 3.4 Chloride 109 H Carbon Dioxide 24 Anion Gap 9 L BUN 7 L Creatinine 0.56 Estim Creat Clear Calc 93.0 Estimated GFR > 60 Random Glucose 90 Calcium 8.7 Total Bilirubin 3.9 H Direct Bilirubin 3.1 H AST 37 H ALT 67 H Alkaline Phosphatase 131 H C-Reactive Protein 8.70 H Total Protein 5.6 L Albumin 3.0 L Ytrlf-4-Gngmrsscthn 201 H Double Strand DNA Ab <1 Microbiology Microbiology Results: Microbiology 07/28/25 17:27 Blood - Venous Blood Culture - Preliminary No growth after 48 hours. 07/28/25 17:26 Blood - Venous Blood Culture - Preliminary No growth after 48 hours. 07/28/25 17:50 Urine clean catch - Clean Catch Midstream Urine Culture - Final Procedures Date of Service Date of Service: 07/30/25 Progress Note: A&P Assessment and plan (1) Elevated LFTs: Status: Acute Plan 1/ Abn LFT< seem to have coincided with macrobid use, ddx: autoimmune, DILI, viral etiology. No CBD obstruction, lipase nml PLAN: 1/ check hep E 2/ cont to trend LFT, if downgoing can hold off on steroids and liver bx 3/ await JOSE and other Ab Time Spent With Patient Time: Total time managing care of this patient today ____ minutes. Quality Stroke Does the patient have a stroke diagnosis?: No VTE Prior VTE?: No VTE Risk Level:: Medical - moderate - high VTE Device Contraindication: N/A - Device Ordered VTE Drug Contraindication: N/A - Med Ordered
[2025-07-30 22:34] LABS: Proteinase 3 PR3 Antibodies <1.0 AI
[2025-07-31 03:36] VITALS: BP 140/68; PULSE 57; RESP 18; TEMP 36.6; O2SAT 93
[2025-07-31 06:29] LABS: A. Phagocytphilium DNA,RT-PCR NOT DETECTED (NOT DETECTED); Babesia Microti DNA, RT-PCR NOT DETECTED (NOT DETECTED); Borrelia Miyamotoi,DNA RT-PCR NOT DETECTED (NOT DETECTED); E.Chaffeensis DNA RT-PCR NOT DETECTED (NOT DETECTED); Lyme(Borrelia ssp)DNA RT-PCR NOT DETECTED (NOT DETECTED)
[2025-07-31 06:40] LABS: Alanine Aminotransferase 72 U/L (0-31); Albumin Level 3.1 g/dL (3.5-5.0); Alkaline Phosphatase 138 U/L (39-117); Anion Gap 11 (12-20); Aspartate Amino Transferase 49 U/L (5-31); Blood Urea Nitrogen 5 mg/dL (9-16); Calcium 8.5 mg/dL (8.4-10.2); Carbon Dioxide 24 mmol/L (22-29); Chloride 108 mmol/L (96-108); Creatinine Clr Calc Pharmacy 98.3; Estimated Glomerular Filt Rate > 60; Potassium 3.3 mmol/L (3.3-5.1); Sodium 140 mmol/L (135-145); Total Protein 5.5 g/dL (6.5-8.0)
[2025-07-31 07:21] VITALS: BP 130/66; PULSE 55; RESP 16; TEMP 36.8; O2SAT 94
[2025-07-31] MEDS: 0.9 % Sodium Chloride Flush 3 ML SYRINGE IVFLUSH (08:48)
--- NOTE | 2025-07-31 11:28 | MHC.CM.PN ---
Patient medically cleared for dc home via private transport.
[2025-07-31 11:32] VITALS: BP 146/71; PULSE 57; RESP 16; TEMP 36.5; O2SAT 97
--- NOTE | 2025-08-02 07:14 | P.CDIM_ITS ---
PROVIDER RESPONSE TEXT: To clarify, the appropriate diagnosis supported by the clinical indicators: Hypokalemia: resolved QUERY TEXT: PHYSICIAN'S DOCUMENTATION REQUEST Date of Query: 07/31/2025 07:58 AM EDT Patient Name: Daylin Torres Admit Date: 07/29/2025 Dear Reece Avilez MD, A review of the medical record indicates additional documentation may be needed. Please review below and update the documentation accordingly. Clinical Indicators: LABS: Potassium 2.8 L 3.5 Klor-Con Based on the above, is there a diagnosis that correlates with these lab findings for this patient? Hypokalemia resolved, possible, probable etc. Labs indicate a diagnosis of (please specify) Other (explain) Clinically unable to determine (explain) Thank you, Destiney Bustamante, CCS, CDIS Use of terms such as suspected, likely, concern for, or probable (associated with a specific diagnosis that is being evaluated, monitored, or treated as if it exists) are acceptable and can be coded in the inpatient setting, when documented at the time of discharge. Please use your independent medical judgment in providing your response. THIS QUERY IS PART OF THE PERMANENT MEDICAL RECORD
[2025-08-02 21:44] LABS: Chlamydia Pneumoniae Interp. Past Infection; Chlamydia Trachomatis IgA <1:16 titer (<1:16)
[2025-08-04 20:28] LABS: Hepatitis E Virus HEV IgG NOT DETECTED; Hepatitis E Virus HEV IgM NOT DETECTED
[2025-08-05 15:08] LABS: Anti Nuclear Antibody Screen NEGATIVE (NEGATIVE)
== END 2025-07-31 12:15 | disposition home or self-care (01) | DRG 395 ==
LOC: HO.ED 07-29 01:47 → HO.EDOVER 07-29 02:04 → HO.S3 07-29 12:09
PROVIDERS: Internal Medicine Gastroenterology; Registered Nurse Emergency; Admitting Provider Internal Medicine; Emergency Provider Student in an Organized Health Care Education/Training Program; PCP Internal Medicine; Visit Provider Internal Medicine
DX: K65.4 Sclerosing mesenteritis (principal); E03.9 Hypothyroidism, unspecified; F32.A Depression, unspecified; E87.6 Hypokalemia; K71.9 Toxic liver disease, unspecified; T37.8X5A Adverse effect of other specified systemic anti-infectives and antiparasitics, initial encounter; Z20.822 Contact with and (suspected) exposure to COVID-19; Z87.440 Personal history of urinary (tract) infections; Z79.890 Hormone replacement therapy; Z79.899 Other long term (current) drug therapy
CPT/HCPCS: 36415; 74177; 74181; 76705; 80053; 81001; 82103; 82248; 83605; 83615; 83690; 84132; 84550; 85025; 85610; 85999; 86021; 86038; 86140; 86225; 86631; 86632; 86704; 86706; 86709; 86790; 86803; 87040; 87081; 87086; 87340; 87468; 87469; 87478; 87484; 87502; 87635; 87651; 87798; 93005; 99285; J1308; J1650; J2405; J2543; J7120; Q9967

== ENCOUNTER → 2025-07-28 18:19 | Outpatient (BNV) | payer MEDICARE, SELFPAY | PROVIDERS: Emergency Provider Student in an Organized Health Care Education/Training Program; PCP Internal Medicine; Visit Provider Radiology Diagnostic Radiology | DX: K65.4 Sclerosing mesenteritis (principal); D25.9 Leiomyoma of uterus, unspecified; K44.9 Diaphragmatic hernia without obstruction or gangrene | CPT/HCPCS: 74177; 76705 ==

== ENCOUNTER → 2025-07-29 01:44 | Outpatient (BNV) | payer MEDICARE, SELFPAY | PROVIDERS: Admitting Provider Internal Medicine; Emergency Provider Student in an Organized Health Care Education/Training Program; PCP Internal Medicine; Visit Provider Internal Medicine Cardiovascular Disease | DX: R94.31 Abnormal electrocardiogram [ECG] [EKG] (principal); R10.13 Epigastric pain | CPT/HCPCS: 93010 ==

== ENCOUNTER 2025-07-29 01:59 | Outpatient (BNV) | payer MEDICARE, SELFPAY | END 2025-07-29 14:39 | PROVIDERS: Admitting Provider Internal Medicine; Emergency Provider Student in an Organized Health Care Education/Training Program; PCP Internal Medicine; Visit Provider Radiology Diagnostic Radiology | DX: R10.9 Unspecified abdominal pain (principal); R74.01 Elevation of levels of liver transaminase levels | CPT/HCPCS: 74181 ==

== ENCOUNTER → 2025-07-29 01:59 | Outpatient (BNV) | payer MEDICARE, SELFPAY | PROVIDERS: Admitting Provider Internal Medicine; Emergency Provider Student in an Organized Health Care Education/Training Program; PCP Internal Medicine; Visit Provider Internal Medicine Gastroenterology | DX: R79.89 Other specified abnormal findings of blood chemistry (principal) | CPT/HCPCS: 99232 ==

== ENCOUNTER → 2025-07-29 01:59 | Outpatient (BNV) | payer MEDICARE, SELFPAY | PROVIDERS: Admitting Provider Internal Medicine; Emergency Provider Student in an Organized Health Care Education/Training Program; PCP Internal Medicine; Visit Provider Internal Medicine | DX: R79.89 Other specified abnormal findings of blood chemistry (principal); K65.4 Sclerosing mesenteritis | CPT/HCPCS: 99223; 99499 ==

== ENCOUNTER 2025-08-02 10:09 | Outpatient (REF) | payer MEDICARE, SELFPAY ==
[2025-08-02 11:28] LABS: Alanine Aminotransferase 189 U/L (0-31); Albumin Level 3.8 g/dL (3.5-5.0); Alkaline Phosphatase 176 U/L (39-117); Aspartate Amino Transferase 104 U/L (5-31); Total Protein 6.8 g/dL (6.5-8.0)
--- OUTSIDE RECORDS SUMMARY | 2025-08-02 11:33 | XMS_ITS | Patient Health Record ---
[facility] Address [address] [place] [address] Care Team Providers Care Wall Taper Helper Name Role Phone Lima Hernandez MD Primary [...] Status Risk Notes Problem Acquired hallux valgus ([id number]) Hallux valgus (acquired), left foot (M20.12) Active confirmed Plan Of Treatment No Information Insurance Providers Payer Name Payer Address Payer Phone Subscriber Number Group Number Insured Name Patient Relationship to Insured Coverage Start Date Coverage End Date [facility] [address] [facility] [id number] Daylin Torres Self - patient is the insured Medical (General) History Medical History History ICD Code Arthritis asthma Measles Chicken pox Surgical History Surgery Date(Month/Year) Carpal tunnel Right left carple tunnel
== END 2025-08-02 10:10 | disposition home or self-care (01) ==
LOC: HO.LAB 10:09
PROVIDERS: PCP Internal Medicine; Visit Provider Internal Medicine
DX: R79.89 Other specified abnormal findings of blood chemistry (principal)
CPT/HCPCS: 36415; 80076

== ENCOUNTER 2025-08-14 08:02 | Outpatient (REF) | payer MEDICARE, SELFPAY ==
--- OUTSIDE RECORDS SUMMARY | 2025-08-14 08:10 | XMS_ITS | Patient Health Record ---
[facility] Address [address] [place] [address] Care Team Providers Care Sanding Machine Tender Automatic Name Role Phone Lima Hernandez MD Primary [...] Status Risk Notes Problem Acquired hallux valgus ([id number]) Hallux valgus (acquired), left foot (M20.12) Active confirmed Plan Of Treatment No Information Insurance Providers Payer Name Payer Address Payer Phone Subscriber Number Group Number Insured Name Patient Relationship to Insured Coverage Start Date Coverage End Date [facility] [address] [facility] [id number] Daylin Torres Self - patient is the insured Medical (General) History Medical History History ICD Code Arthritis asthma Measles Chicken pox Surgical History Surgery Date(Month/Year) Carpal tunnel Right left carple tunnel
--- OUTSIDE RECORDS SUMMARY | 2025-08-14 08:10 | XMS_ITS | Clinical Summary ---
Author Organization [facility] [address] Address [address] [place] [address] Phone Care Team Providers Care Rocket Engine Mechanic Name Role Phone Lima Hernandez MD Primary Care Provider [phone] Encounters Date Type Department Care Team Description 08/06/2025 Telephone Gastroenterology - [address] [phone] Matthias Pettit MD from Last 3 Months Social History Tobacco Use Types Packs/Day Years Used Date Smoking Tobacco: Never Assessed Comments Unknown Sex and Gender Information Value Date Recorded Sex Assigned at Female 08/06/2025 9:08 AM EDT Legal Sex Female 9:07 AM EDT Gender Identity Female 08/06/2025 9:08 AM EDT Sexual Orientation Not on file Plan of Treatment Upcoming Encounters Date Type Department Care Team ([facility] st Contact Info) Description 03/13/2026 9:00 AM EDT Consult Gastroenterology - [address] [place] [phone] Sonia Bruno NP [address] [address] Health Maintenance Due Date Last Done Comments Breast Cancer Screening 1960 Colorectal Cancer Screening: Colonoscopy 1960 DTaP,Tdap,and Td Vaccines (1 - Tdap) 1977 Pneumococcal Vaccine: 50+ Ye ars (1 of 1 - PCV) 2008 Zoster Vaccines (1 of 2) 2008 Depression Screening 10/10/2024 COVID-19 Vaccine (2023-2 5 season) 2025 Influenza Vaccine (#1) 2025 Falls Risk Assessment 08/06/2025 Hepatitis C Screening 08/06/2025 Medicare Annual Wellness Visit 08/06/2025 Osteoporosis Screening (Bone Density Screening) 08/06/2025 Social Influencers of Health Screening 08/06/2025 RSV Immunization Adult Patie nts (1 - 1-dose 75+ series) 2033 HIB Vaccines Aged Out No longer eligi ble based on patient's age to complete this topic HPV Vaccines Aged Out No longer eligi ble based on patient's age to complete this topic Hepatitis A Vaccines Aged Out No long er eligible based on patient's age to complete this topic Hepatitis B Vaccines Aged Out No long er eligible based on patient's age to complete this topic IPV Vaccines Aged Out No longer eligi ble based on patient's age to complete this topic MMR Vaccines Aged Out No longer eligi ble based on patient's age to complete this topic Meningococcal ACWY Vaccine Aged Out N o longer eligible based on patient's age to complete this topic Meningococcal B Vaccine Aged Out No l onger eligible based on patient's age to complete this topic RSV Immunization Patients Un mery 20 months Aged Out No longer eligible b ased on patient's age to complete this topic Varicella Vaccines Aged Out No longer eligible based on patient's age to complete this topic Insurance [employer] Care Teams Rocket Engine Mechanic Relationship Specialty Start Date End Date Lima Hernandez MD [address] [address] [place] [address] PCP - General Internal Medicine 08/06/25
[2025-08-14 09:27] LABS: Alanine Aminotransferase 42 U/L (0-31); Albumin Level 4.1 g/dL (3.5-5.0); Alkaline Phosphatase 97 U/L (39-117); Anion Gap 10 (12-20); Aspartate Amino Transferase 27 U/L (5-31); Blood Urea Nitrogen 10 mg/dL (9-16); Calcium 8.9 mg/dL (8.4-10.2); Carbon Dioxide 26 mmol/L (22-29); Chloride 108 mmol/L (96-108); Estimated Glomerular Filt Rate > 60; Potassium 3.9 mmol/L (3.3-5.1); Sodium 140 mmol/L (135-145); Total Protein 7.0 g/dL (6.5-8.0)
== END 2025-08-14 08:03 | disposition home or self-care (01) ==
LOC: HO.LAB 08:02
PROVIDERS: PCP Internal Medicine; Visit Provider Internal Medicine Gastroenterology
DX: K65.4 Sclerosing mesenteritis (principal); K75.81 Nonalcoholic steatohepatitis (NASH)
CPT/HCPCS: 36415; 80053; 86140